=== PATIENT | female | born 2005 | race Caucasian/White ===

== ENCOUNTER 2024-04-04 10:29 | Inpatient (IN) ==
[2024-04-04] MEDS ORDERED: OXYTOCIN 30 UNITS/NSS 30 UNITS/500 ML BAG IV PRN (10:46)
[2024-04-04] MEDS ORDERED: LIDOCAINE 1% LOCAL 20 ML VIAL INFIL PRN (10:46)
--- NOTE | 2024-04-04 10:49 | History & Physical Report ---
Date of Service April 04, 2024 Assessment & Plan (1) Encounter for induction of labor: (2) Post-dates : Plan admit, fetus category one. Plan pitocin induction. arom when indicated. epidural on demand. anticipate . 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 uncomplicated. Notes good fm, rare contractions, no lof, vb and Delivery Plans Obesity (BMI between 35-39 @ beginning of ) *Growth US @ 32 wks *Weekly NSTs @ 36wks declines flu vaccine, covid unvaccinated. Patient Covid positive end of jul--8 weeks start baby asa MH crisis *see note from 38wk visit OB Labs: Blood Type O Positive 09/18/23 Antibody Screen NEGATIVE 09/18/23 Hemoglobin 11.2 g/dl (12.0-16.0) L 01/05/24 Hematocrit 34.1 % (37.0-47.0) L 01/05/24 Mean Corpuscular Volume 85.9 fL (80.0-100.0) 09/18/23 Platelet Count 270 K/uL (130-400) 09/18/23 Rubella IgG Antibody Immune (Immune) 09/18/23 Rapid Plasma Reagin Nonreactive (Nonreactive) 09/18/23 Hepatitis B Surface Antigen. NON-REACTIVE (NON-REACTIVE) 09/18/23 Hepatitis C Antibody (EIA) NON-REACTIVE (NON-REACTIVE) 09/18/23 HIV (1&2) Ag and Ab Confirmation NON-REACTIVE (NON-REACTIVE) 09/18/23 Glucose 1 Hour 50 gm Load 98 mg/dl (70-130) 01/05/24 Maternal Serum Alpha Fetoprotein 38.0 ng/mL 10/16/23 OB Optional Labs: Chlamydia trachomatis RNA Not Detected (NotDetected) 09/18/23 Neisseria gonorrhoeae RNA Not Detected (NotDetected) 09/18/23 Alpha Fetoprotein Triple Screen SEE NOTE 10/16/23 Labs Reviewed: low risk cfdna - sln neg horizon - sln afp neg--akh gbs neg--akh Allergies Allergy/AdvReac Type Severity Reaction Status Date / Time Penicillins Allergy Hives Verified 04/03/24 19:54 Home Medications Medication Instructions Recorded Confirmed Type vit 168-iron 27 mg-folic cap PO 09/10/23 04/01/24 History acid 800 mcg-omega3 235 mg capsule (One-A-Day -1) ondansetron HCl 4 mg tablet 4 mg PO Q6H PRN nausea and 02/02/24 04/03/24 Rx vomiting #20 tabs Patient History Medical History Abdominal contusion Chest wall contusion Ecchymosis Family History Brother Autism Aunt Breast cancer Social History Smoking Status: Never smoker Second Hand Exposure: No; Do You Dip or Chew Tobacco: No; Hx Alcohol Use: No Hx Substance Use: No Preferred Language: [place] Citizen Communication Ability: Effective Biomed Tech Required: No Beliefs That Will Affect Care: None marital status: Single marital status details: Luciano (22) [phone] Current Living Situation: Significant Other Current Living Situation Comment: lives with fob, roomate current occupational status: employed current occupation: [employer] Feels Safe at Home: Yes Assistive Devices: Glasses Physical Exam Constitutional: WD/WN, vitals as above Gastrointestinal (Abdomen): soft, nt, nd Psychiatric: A+Ox3, euthymic affect Genitourinary: cx--3/75/-2 toco--jordy efm--140s with mod variability, accels to 160s, no decels Coding Level of Care Code None Diagnoses Encounter for induction of labor Z34.90 Post-term , 40-42 weeks of gestation O48.0 Post-term type: 40-42 weeks gestation (2) Post-dates Post-term type: 40-42 weeks gestation Qualified Code(s): O48.0 - Post-term
[2024-04-04 11:26] LABS: Hematocrit (blood only) 34.5 % (37.0-47.0); Hemoglobin 11.4 g/dl (12.0-16.0); Mean Corpuscular Hemoglobin 27.9 pg (25.0-34.0); Mean Corpuscular Volume 84.6 fL (80.0-100.0); Mean Platelet Volume 10.6 fL (9.4-12.4); Platelet Count 206 K/uL (130-400); RDW Coefficient of Variation 13.3 % (11.5-14.5); Red Blood Count 4.08 M/uL (4.20-5.40); White Blood Count 10.37 K/ul (4.8-10.8)
[2024-04-04] MEDS: LACTATED RINGER'S 1,000 ML IV PRN (11:38)
[2024-04-04 11:54] LABS: Alanine Aminotransferase 10 U/L (7-52); Albumin Globulin Ratio 1.1 (0.9-2); Albumin Level 3.4 gm/dl (3.4-5.0); Alkaline Phosphatase 143 U/L (34-104); Anion Gap 9 (3-11); Aspartate Aminotransferase 13 U/L (13-39); BUN Creatinine Ratio 13.6 (10-20); Bilirubin,Total 0.3 mg/dl (0.2-1.0); Blood Urea Nitrogen 6 mg/dl (6-23); Calcium 8.9 mg/dl (8.6-10.3); Carbon Dioxide 20 mmol/L (21-32); Chloride 107 mmol/L (98-107); Creatinine Clr Calc Pharmacy 246.2 ml/min; Est GFR (African American) > 150.0 ml/min; Est GFR (Non-African American) 145.3 ml/min; Glucose 88 mg/dl (70-99(Fasting)); Potassium 3.7 mmol/L (3.5-5.1); Sodium 136 mmol/L (136-145); Total Protein 6.4 gm/dl (6.0-8.3)
[2024-04-04] MEDS: OXYTOCIN 30 UNITS/NSS 30 UNITS/500 ML BAG IV PRN (12:06)
[2024-04-04] MEDS: ONDANSETRON INJ 2 MG/ML 2 ML VIAL IV STA (19:24)
--- NOTE | 2024-04-04 19:24 | Labor Progress Brief Note ---
Date of Service April 04, 2024 Subjective noting contractions, some nausea Assessment & Plan (1) Post-dates : Post-term type: 40-42 weeks gestation Qualified Code(s): O48.0 - Post-term (2) Encounter for induction of labor: Plan continue current therapy. fetus category one Admission and Anticipated Discharge Date Admission Date: April 04, 2024 Physical Exam Physical Exam: cx--3/75/-2 arom--clear toco--q2-3 efm--149s wtih mod variability, accels to 160s, no decels Results & Data Vital Signs (Past 12 Hours) Vital Signs Temp Pulse Resp BP 04/04/24 19:06 85 04/04/24 19:06 149/82 H 04/04/24 19:00 18 04/04/24 19:00 18 04/04/24 18:00 18 04/04/24 18:00 18 04/04/24 17:30 18 04/04/24 17:30 18 04/04/24 17:00 18 04/04/24 17:00 18 04/04/24 16:34 71 04/04/24 16:34 133/84 04/04/24 16:30 20 04/04/24 16:30 36.8 C 20 04/04/24 16:00 18 04/04/24 16:00 18 04/04/24 15:48 69 04/04/24 15:48 131/81 04/04/24 15:30 20 04/04/24 15:30 20 04/04/24 15:00 20 04/04/24 15:00 36.9 C 20 04/04/24 14:42 82 04/04/24 14:42 120/74 04/04/24 14:00 16 04/04/24 14:00 16 04/04/24 13:56 81 04/04/24 13:56 115/70 04/04/24 13:40 20 04/04/24 13:40 20 04/04/24 12:45 79 04/04/24 12:45 126/75 04/04/24 12:30 16 04/04/24 12:30 16 04/04/24 12:00 20 04/04/24 12:00 20 04/04/24 11:59 75 04/04/24 11:59 130/84 05/06/24 11:45 18 04/04/24 11:45 18 04/04/24 11:41 83 04/04/24 11:41 135/71 04/04/24 11:39 83 04/04/24 11:39 180/87 H 04/04/24 11:15 36.8 C 20 04/04/24 10:51 94 H 142/87 H Coding Level of Care Code None Diagnoses Post-term , 40-42 weeks of gestation O48.0 Post-term type: 40-42 weeks gestation Encounter for induction of labor Z34.90
[2024-04-04] MEDS ORDERED: NALBUPHINE HCL 5 MG in SYRINGE 0 ML IV PRN (21:40)
[2024-04-04] MEDS ORDERED: SODIUM CHLORIDE 0.9% PF INJ 10 ML VIAL EPI PRN (21:40)
[2024-04-04] MEDS ORDERED: fentaNYL citrate PF 100 MCG/2 ML VIAL EPI PRN (21:40)
[2024-04-04] MEDS ORDERED: NALOXONE HCL 1 MG in SODIUM CHLORIDE 0.9% 1,000 ML IV PRN (21:40)
[2024-04-04] MEDS ORDERED: ePHEDrine sulfate 50 MG/ML AMP IV PRN (21:40)
[2024-04-04] MEDS ORDERED: BUPIVACAINE 0.25% PF 30 ML VIAL EPI PRN (21:40)
[2024-04-04] MEDS ORDERED: diphenhydrAMINE 50 MG/ML VIAL IV PRN (21:40)
[2024-04-04] MEDS ORDERED: LIDOCAINE 2% MPF LOCAL 5 ML VIAL EPI PRN (21:40)
[2024-04-04] MEDS ORDERED: ROPIVACAINE 0.5% PF 5 MG/ML 20 ML VIAL EPI PRN (21:40)
[2024-04-04] MEDS ORDERED: NALOXONE HCL 0.4 MG/1 ML VIAL/CARP IV PRN (21:40)
--- NOTE | 2024-04-04 21:44 | Anesthesiology Consultation ---
Date of Service April 04, 2024 Assessment & Plan Chart Review Chart Review: Patient NOT seen in Pre Admission Testing and Acceptable Risk for Labor Epidural Consults Requested none History Height/Weight Height: 5 ft 5 in Weight: 105.687 kg Allergies Allergy/AdvReac Type Severity Reaction Status Date / Time Penicillins Allergy Hives Verified 04/03/24 19:54 Medications Home Medications Medication Instructions Recorded Confirmed Last Taken vit 168-iron 27 mg-folic 27 cap PO DAILY 09/10/23 04/04/24 04/04/24 acid 800 mcg-omega3 235 mg capsule (One-A-Day -1) ondansetron HCl 4 mg tablet 4 mg PO Q6H PRN nausea and 02/02/24 04/04/24 Unknown vomiting #20 tabs Active Medications Generic Name Dose Route Start Last Admin Trade Name Freq PRN Reason Stop Dose Admin Oxytocin 30 units in 500 mls @ 18 mls/hr 04/04/24 10:46 04/04/24 20:15 Pitocin 30 Units/Nss IV 04/06/24 10:45 1.08 units/hr .Q24H PRN 18 mls/hr Labor Induction/Augmentation Titration Protocol 1.08 UNITS/HR Lactated Ringer's 1,000 mls @ 125 mls/hr 04/04/24 10:46 04/04/24 21:40 Lr IV 04/06/24 10:45 Infused .Q8H PRN Infusion L&D Protocol Protocol Past Medical History Medical History Ecchymosis Abdominal contusion Chest wall contusion Exercise / Class Metabolic Activity II 4-5 Yardwork/Stairs/Walk up hill Past Family History Family History Brother Autism Aunt Breast cancer Past Surgical History Surgical History No history of previous surgery Past Anesthesia History No Hx of Anesthesia Complications and No Family Hx of Anesthesia Complications History of PONV No Hx of PONV and No Hx of Motion Sickness Social History Smoking Status: Never smoker Do You Dip or Chew Tobacco: No Hx Alcohol Use: No Hx Substance Use: No substance use type: does not use Physical Exam Vital Signs Last Vital Signs Temp 36.6 C 04/04/24 21:00 Pulse 64 04/04/24 20:58 Resp 18 04/04/24 21:00 BP 132/77 04/04/24 20:58 Testing Laboratory Results 04/04/24 11:03 04/04/24 11:07 Blood Type O Positive 04/04/24 11:03 Antibody Screen NEGATIVE 04/04/24 11:03
[2024-04-04] MEDS: BUPIVACAINE 0.25% PF 30 ML VIAL ONE (21:47)
[2024-04-04] MEDS: fentaNYL citrate PF 100 MCG/2 ML VIAL ONE (21:47)
[2024-04-04] MEDS: fentANYL 2 MCG/ML BUPIVacaine 0.125%-NSS 100ML BAG ONE (21:48)
[2024-04-04] MEDS: LIDOCAINE 2%/EPINEPHRINE 1:200,000 20 ML PF ONE (22:00)
--- NOTE | 2024-04-05 00:09 | Labor Progress Brief Note ---
Date of Service April 05, 2024 Subjective comfortable with epidural Assessment & Plan (1) Post-dates : Post-term type: 40-42 weeks gestation Qualified Code(s): O48.0 - Post-term (2) Encounter for induction of labor: Plan continue current management. fetus category one. Admission and Anticipated Discharge Date Admission Date: April 04, 2024 Physical Exam Physical Exam: cx--4+/100/-2 toco--q3-4min, pit at 18 efm--130s with mod variability, accels to 160s with mod variability, no decels Results & Data Vital Signs (Past 12 Hours) Vital Signs Temp Pulse Resp BP Pulse Ox 04/05/24 00:02 66 98 04/04/24 23:57 98 04/04/24 23:57 67 04/04/24 23:56 61 04/04/24 23:56 109/64 04/04/24 23:52 97 04/04/24 23:52 66 04/04/24 23:47 98 04/04/24 23:47 70 04/04/24 23:42 97 04/04/24 23:42 53 L 04/04/24 23:41 51 L 04/04/24 23:41 116/68 04/04/24 23:37 97 04/04/24 23:37 57 L 04/04/24 23:32 97 04/04/24 23:32 55 L 04/04/24 23:27 97 04/04/24 23:27 65 04/04/24 23:27 126/67 04/04/24 23:22 97 04/04/24 23:22 53 L 04/04/24 23:17 98 04/04/24 23:17 52 L 04/04/24 23:12 98 04/04/24 23:12 55 L 04/04/24 23:11 56 L 04/04/24 23:11 128/64 04/04/24 23:07 98 04/04/24 23:07 62 04/04/24 23:02 99 04/04/24 23:02 62 04/04/24 23:00 18 04/04/24 23:00 38.8 C H 18 04/04/24 22:57 97 04/04/24 22:57 70 04/04/24 22:57 77 04/04/24 22:57 119/57 L 04/04/24 22:52 97 04/04/24 22:52 72 04/04/24 22:47 97 04/04/24 22:47 68 04/04/24 22:43 68 04/04/24 22:43 118/61 04/04/24 22:42 97 04/04/24 22:42 65 04/04/24 22:37 98 04/04/24 22:37 72 04/04/24 22:32 98 04/04/24 22:32 57 L 04/04/24 22:30 18 04/04/24 22:30 18 04/04/24 22:27 99 04/04/24 22:27 64 04/04/24 22:26 66 04/04/24 22:26 128/62 04/04/24 22:24 77 04/04/24 22:24 162/67 H 04/04/24 22:22 99 04/04/24 22:22 60 04/04/24 22:20 18 04/04/24 22:20 18 04/04/24 22:19 71 04/04/24 22:19 124/75 04/04/24 22:17 98 04/04/24 22:17 73 04/04/24 22:12 99 04/04/24 22:12 72 04/04/24 22:12 127/70 04/04/24 22:11 68 04/04/24 22:11 121/56 L 04/04/24 22:10 18 04/04/24 22:10 18 04/04/24 22:09 77 04/04/24 22:09 126/62 04/04/24 22:08 85 04/04/24 22:08 131/67 04/04/24 22:07 99 04/04/24 22:07 80 04/04/24 22:07 122/61 04/04/24 22:06 76 04/04/24 22:06 121/59 L 04/04/24 22:05 66 04/04/24 22:05 119/58 L 04/04/24 22:04 77 04/04/24 22:04 126/64 04/04/24 22:03 72 04/04/24 22:03 123/57 L 04/04/24 22:02 99 04/04/24 22:02 72 04/04/24 22:02 123/61 04/04/24 22:01 68 04/04/24 22:01 130/65 04/04/24 22:00 84 04/04/24 22:00 141/65 H 04/04/24 21:59 78 04/04/24 21:59 133/81 04/04/24 21:58 87 04/04/24 21:58 144/81 H 04/04/24 21:57 100 04/04/24 21:57 84 04/04/24 21:57 75 04/04/24 21:57 134/87 04/04/24 21:56 93 H 04/04/24 21:56 154/74 H 04/04/24 21:52 100 04/04/24 21:52 95 H 04/04/24 21:47 100 04/04/24 21:47 90 04/04/24 21:47 147/73 H 04/04/24 21:42 100 04/04/24 21:42 78 04/04/24 21:00 18 04/04/24 21:00 36.6 C 18 04/04/24 20:58 64 04/04/24 20:58 132/77 04/04/24 19:06 85 04/04/24 19:06 149/82 H 04/04/24 19:05 36.7 C 18 04/04/24 19:05 18 04/04/24 19:05 36.7 C 18 04/04/24 19:00 18 04/04/24 19:00 18 04/04/24 18:00 18 04/04/24 18:00 18 04/04/24 17:30 18 04/04/24 17:30 18 04/04/24 17:00 18 04/04/24 17:00 18 04/04/24 16:34 71 04/04/24 16:34 133/84 04/04/24 16:30 20 04/04/24 16:30 36.8 C 20 04/04/24 16:00 18 04/04/24 16:00 18 04/04/24 15:48 69 04/04/24 15:48 131/81 04/04/24 15:30 20 04/04/24 15:30 20 04/04/24 15:00 20 04/04/24 15:00 36.9 C 20 04/04/24 14:42 82 04/04/24 14:42 120/74 04/04/24 14:00 16 04/04/24 14:00 16 04/04/24 13:56 81 04/04/24 13:56 115/70 04/04/24 13:40 20 04/04/24 13:40 20 04/04/24 12:45 79 04/04/24 12:45 126/75 04/04/24 12:30 16 04/04/24 12:30 16 Coding Level of Care Code None Diagnoses Post-term , 40-42 weeks of gestation O48.0 Post-term type: 40-42 weeks gestation Encounter for induction of labor Z34.90
[2024-04-05] MEDS: SODIUM CHLORIDE 0.9% PF INJ 10 ML VIAL ONE (00:21)
[2024-04-05] MEDS: BUPIVACAINE 0.25% PF 30 ML VIAL EPI STA (00:21)
[2024-04-05] MEDS: LIDOCAINE 2%/EPINEPHRINE 1:200,000 20 ML PF EPI STA (00:21)
[2024-04-05] MEDS: SODIUM CHLORIDE 0.9% PF INJ 10 ML VIAL EPI STA (00:21)
[2024-04-05] MEDS: ePHEDrine sulfate 50 MG/ML AMP ONE (00:21)
[2024-04-05] MEDS: fentaNYL citrate PF 100 MCG/2 ML VIAL EPI STA (00:21)
--- NOTE | 2024-04-05 05:08 | Labor Progress Brief Note ---
Date of Service April 05, 2024 Subjective comfortable Assessment & Plan (1) Post-dates : Post-term type: 40-42 weeks gestation Qualified Code(s): O48.0 - Post-term (2) Encounter for induction of labor: Plan slow change, hopefully on cusp of being active. fetus category one. iupc placed, pit can be increased to 30 if needed. Admission and Anticipated Discharge Date Admission Date: April 04, 2024 Physical Exam Physical Exam: cx--5/100/-2 iupc placed toco--q2-4 min, pit at 20 efm--140s with mod variability, accels present, rare variable Results & Data Vital Signs (Past 12 Hours) Vital Signs Temp Pulse Resp BP Pulse Ox 04/05/24 05:02 93 H 100 04/05/24 04:57 60 136/82 99 04/05/24 04:52 58 L 97 04/05/24 04:47 53 L 97 04/05/24 04:42 98 04/05/24 04:42 69 04/05/24 04:42 83 131/70 04/05/24 04:41 18 04/05/24 04:41 36.3 C L 18 04/05/24 04:37 62 98 04/05/24 04:32 60 99 04/05/24 04:28 69 101/65 04/05/24 04:27 66 96 04/05/24 04:22 67 95 04/05/24 04:17 82 96 04/05/24 04:12 59 L 106/59 L 96 04/05/24 04:07 71 96 04/05/24 04:02 66 96 04/05/24 03:58 50 L 106/55 L 04/05/24 03:57 67 95 04/05/24 03:52 66 95 04/05/24 03:47 65 96 04/05/24 03:42 53 L 110/54 L 96 04/05/24 03:37 70 96 04/05/24 03:32 68 96 04/05/24 03:27 97 04/05/24 03:27 68 04/05/24 03:27 70 111/57 L 04/05/24 03:22 70 96 04/05/24 03:17 67 97 04/05/24 03:12 56 L 113/65 98 04/05/24 03:07 65 97 04/05/24 03:02 74 99 04/05/24 03:00 18 04/05/24 03:00 36.7 C 18 04/05/24 02:57 92 04/05/24 02:57 76 04/05/24 02:57 74 130/75 04/05/24 02:52 62 98 04/05/24 02:47 55 L 96 04/05/24 02:42 53 L 121/65 96 04/05/24 02:37 59 L 96 04/05/24 02:32 55 L 97 04/05/24 02:27 51 L 97 04/05/24 02:26 48 L 123/57 L 04/05/24 02:22 52 L 96 04/05/24 02:17 53 L 97 04/05/24 02:12 97 04/05/24 02:12 56 L 04/05/24 02:12 51 L 123/62 04/05/24 02:07 53 L 97 04/05/24 02:02 52 L 97 04/05/24 01:57 55 L 144/76 H 99 04/05/24 01:52 51 L 98 04/05/24 01:47 52 L 97 04/05/24 01:42 53 L 97 04/05/24 01:41 47 L 122/67 04/05/24 01:37 58 L 96 04/05/24 01:32 53 L 97 04/05/24 01:27 58 L 97 04/05/24 01:26 48 L 124/65 04/05/24 01:22 54 L 97 04/05/24 01:17 69 97 04/05/24 01:12 72 98 04/05/24 01:11 62 130/69 04/05/24 01:07 66 98 04/05/24 01:02 66 99 04/05/24 01:00 18 04/05/24 01:00 36.7 C 18 04/05/24 00:57 74 140/71 98 04/05/24 00:52 56 L 98 04/05/24 00:47 73 97 04/05/24 00:42 70 97 04/05/24 00:41 68 120/64 04/05/24 00:37 66 98 04/05/24 00:32 72 97 04/05/24 00:27 64 97 04/05/24 00:26 66 117/61 04/05/24 00:22 64 97 04/05/24 00:17 61 97 04/05/24 00:13 64 124/58 L 04/05/24 00:12 61 98 04/05/24 00:07 79 98 04/05/24 00:02 66 98 04/04/24 23:57 98 04/04/24 23:57 67 04/04/24 23:56 61 04/04/24 23:56 109/64 04/04/24 23:52 97 04/04/24 23:52 66 04/04/24 23:47 98 04/04/24 23:47 70 04/04/24 23:42 97 04/04/24 23:42 53 L 04/04/24 23:41 51 L 04/04/24 23:41 116/68 04/04/24 23:37 97 04/04/24 23:37 57 L 04/04/24 23:32 97 04/04/24 23:32 55 L 04/04/24 23:27 97 04/04/24 23:27 65 04/04/24 23:27 126/67 04/04/24 23:22 97 04/04/24 23:22 53 L 04/04/24 23:17 98 04/04/24 23:17 52 L 04/04/24 23:12 98 04/04/24 23:12 55 L 04/04/24 23:11 56 L 04/04/24 23:11 128/64 04/04/24 23:07 98 04/04/24 23:07 62 04/04/24 23:02 99 04/04/24 23:02 62 04/04/24 23:00 18 04/04/24 23:00 38.8 C H 18 04/04/24 22:57 97 04/04/24 22:57 70 04/04/24 22:57 77 04/04/24 22:57 119/57 L 04/04/24 22:52 97 04/04/24 22:52 72 04/04/24 22:47 97 04/04/24 22:47 68 04/04/24 22:43 68 04/04/24 22:43 118/61 04/04/24 22:42 97 04/04/24 22:42 65 04/04/24 22:37 98 04/04/24 22:37 72 04/04/24 22:32 98 04/04/24 22:32 57 L 04/04/24 22:30 18 04/04/24 22:30 18 04/04/24 22:27 99 04/04/24 22:27 64 04/04/24 22:26 66 04/04/24 22:26 128/62 04/04/24 22:24 77 04/04/24 22:24 162/67 H 04/04/24 22:22 99 04/04/24 22:22 60 04/04/24 22:20 18 04/04/24 22:20 18 04/04/24 22:19 71 04/04/24 22:19 124/75 04/04/24 22:17 98 04/04/24 22:17 73 04/04/24 22:12 99 04/04/24 22:12 72 04/04/24 22:12 127/70 04/04/24 22:11 68 04/04/24 22:11 121/56 L 04/04/24 22:10 18 04/04/24 22:10 18 04/04/24 22:09 77 04/04/24 22:09 126/62 04/04/24 22:08 85 04/04/24 22:08 131/67 04/04/24 22:07 99 04/04/24 22:07 80 04/04/24 22:07 122/61 04/04/24 22:06 76 04/04/24 22:06 121/59 L 04/04/24 22:05 66 04/04/24 22:05 119/58 L 04/04/24 22:04 77 04/04/24 22:04 126/64 04/04/24 22:03 72 04/04/24 22:03 123/57 L 04/04/24 22:02 99 04/04/24 22:02 72 04/04/24 22:02 123/61 04/04/24 22:01 68 04/04/24 22:01 130/65 04/04/24 22:00 84 04/04/24 22:00 141/65 H 04/04/24 21:59 78 04/04/24 21:59 133/81 04/04/24 21:58 87 04/04/24 21:58 144/81 H 04/04/24 21:57 100 04/04/24 21:57 84 04/04/24 21:57 75 04/04/24 21:57 134/87 04/04/24 21:56 93 H 04/04/24 21:56 154/74 H 04/04/24 21:52 100 04/04/24 21:52 95 H 04/04/24 21:47 100 04/04/24 21:47 90 04/04/24 21:47 147/73 H 04/04/24 21:42 100 04/04/24 21:42 78 04/04/24 21:00 18 04/04/24 21:00 36.6 C 18 04/04/24 20:58 64 04/04/24 20:58 132/77 04/04/24 19:06 85 04/04/24 19:06 149/82 H 04/04/24 19:05 36.7 C 18 04/04/24 19:05 18 04/04/24 19:05 36.7 C 18 04/04/24 19:00 18 04/04/24 19:00 18 04/04/24 18:00 18 04/04/24 18:00 18 04/04/24 17:30 18 04/04/24 17:30 18 Coding Level of Care Code None Diagnoses Post-term , 40-42 weeks of gestation O48.0 Post-term type: 40-42 weeks gestation Encounter for induction of labor Z34.90
[2024-04-05] MEDS: fentANYL 2 MCG/ML BUPIVacaine 0.125%-NSS 100ML BAG EPI PRN (06:30)
--- NOTE | 2024-04-05 09:03 | Labor Progress Brief Note ---
Date of Service April 05, 2024 Subjective Crampy and uncomfortable - epidural in place, was working well but recently has been feeling more discomfort. Assessment & Plan (1) Post-dates : Plan: Continue IOL, making adequate progress at this time. Post-term type: 40-42 weeks gestation Qualified Code(s): O48.0 - Post-term (2) Encounter for induction of labor: (3) Obesity affecting : Admission and Anticipated Discharge Date Admission Date: April 04, 2024 Physical Exam Genitourinary: MVU 200+ since 0500 when IUPC was placed. Ctx Q2 Cvx /-1 FHT Cat 1 Results & Data Vital Signs (Past 12 Hours) Vital Signs Temp Pulse Resp BP Pulse Ox 04/05/24 08:57 65 125/69 98 04/05/24 08:52 77 100 04/05/24 08:47 76 98 04/05/24 08:42 67 99 04/05/24 08:41 70 140/72 04/05/24 08:37 79 98 04/05/24 08:32 74 99 04/05/24 08:29 70 135/65 04/05/24 08:27 76 100 04/05/24 08:22 73 96 04/05/24 08:17 68 99 04/05/24 08:12 67 133/80 98 04/05/24 08:07 66 98 04/05/24 08:02 74 98 04/05/24 07:59 51 L 114/61 04/05/24 07:57 60 98 04/05/24 07:52 70 98 04/05/24 07:47 88 99 04/05/24 07:42 59 L 96 04/05/24 07:41 75 111/58 L 04/05/24 07:37 68 98 04/05/24 07:32 67 96 04/05/24 07:27 80 114/65 97 04/05/24 07:25 97.9 F 04/05/24 07:22 58 L 97 04/05/24 07:17 59 L 97 04/05/24 07:12 57 L 97 04/05/24 07:11 72 117/69 04/05/24 07:07 67 97 04/05/24 07:02 68 97 04/05/24 06:58 68 116/73 04/05/24 06:57 63 98 04/05/24 06:52 70 97 04/05/24 06:47 71 98 04/05/24 06:44 67 121/66 04/05/24 06:42 56 L 98 04/05/24 06:37 66 97 04/05/24 06:32 69 98 04/05/24 06:27 68 98 04/05/24 06:26 71 126/68 04/05/24 06:22 80 100 04/05/24 06:17 64 99 04/05/24 06:12 99 04/05/24 06:12 59 L 04/05/24 06:12 64 134/82 04/05/24 06:07 56 L 98 04/05/24 06:02 72 99 04/05/24 05:58 76 158/76 H 04/05/24 05:57 73 99 04/05/24 05:52 57 L 99 04/05/24 05:47 53 L 98 04/05/24 05:42 54 L 98 04/05/24 05:41 64 132/74 04/05/24 05:37 61 99 04/05/24 05:32 63 98 04/05/24 05:28 70 141/77 H 04/05/24 05:27 71 100 04/05/24 05:22 63 100 04/05/24 05:17 66 98 04/05/24 05:12 67 129/70 98 04/05/24 05:07 73 99 04/05/24 05:02 93 H 100 04/05/24 04:57 60 136/82 99 04/05/24 04:52 58 L 97 04/05/24 04:47 53 L 97 04/05/24 04:42 98 04/05/24 04:42 69 04/05/24 04:42 83 131/70 04/05/24 04:41 18 04/05/24 04:41 97.3 F L 18 04/05/24 04:37 62 98 04/05/24 04:32 60 99 04/05/24 04:28 69 101/65 04/05/24 04:27 66 96 04/05/24 04:22 67 95 04/05/24 04:17 82 96 04/05/24 04:12 59 L 106/59 L 96 04/05/24 04:07 71 96 05/07/24 04:02 66 96 04/05/24 03:58 50 L 106/55 L 04/05/24 03:57 67 95 04/05/24 03:52 66 95 04/05/24 03:47 65 96 04/05/24 03:42 53 L 110/54 L 96 04/05/24 03:37 70 96 04/05/24 03:32 68 96 04/05/24 03:27 97 04/05/24 03:27 68 04/05/24 03:27 70 111/57 L 04/05/24 03:22 70 96 04/05/24 03:17 67 97 04/05/24 03:12 56 L 113/65 98 04/05/24 03:07 65 97 04/05/24 03:02 74 99 04/05/24 03:00 18 04/05/24 03:00 98.1 F 18 04/05/24 02:57 92 04/05/24 02:57 76 04/05/24 02:57 74 130/75 04/05/24 02:52 62 98 04/05/24 02:47 55 L 96 04/05/24 02:42 53 L 121/65 96 04/05/24 02:37 59 L 96 04/05/24 02:32 55 L 97 04/05/24 02:27 51 L 97 04/05/24 02:26 48 L 123/57 L 04/05/24 02:22 52 L 96 04/05/24 02:17 53 L 97 04/05/24 02:12 97 04/05/24 02:12 56 L 04/05/24 02:12 51 L 123/62 04/05/24 02:07 53 L 97 04/05/24 02:02 52 L 97 04/05/24 01:57 55 L 144/76 H 99 04/05/24 01:52 51 L 98 04/05/24 01:47 52 L 97 04/05/24 01:42 53 L 97 04/05/24 01:41 47 L 122/67 04/05/24 01:37 58 L 96 04/05/24 01:32 53 L 97 04/05/24 01:27 58 L 97 04/05/24 01:26 48 L 124/65 04/05/24 01:22 54 L 97 04/05/24 01:17 69 97 04/05/24 01:12 72 98 04/05/24 01:11 62 130/69 04/05/24 01:07 66 98 04/05/24 01:02 66 99 04/05/24 01:00 18 04/05/24 01:00 98.1 F 18 04/05/24 00:57 74 140/71 98 04/05/24 00:52 56 L 98 04/05/24 00:47 73 97 04/05/24 00:42 70 97 04/05/24 00:41 68 120/64 04/05/24 00:37 66 98 04/05/24 00:32 72 97 04/05/24 00:27 64 97 04/05/24 00:26 66 117/61 04/05/24 00:22 64 97 04/05/24 00:17 61 97 04/05/24 00:13 64 124/58 L 04/05/24 00:12 61 98 04/05/24 00:07 79 98 04/05/24 00:02 66 98 04/04/24 23:57 98 04/04/24 23:57 67 04/04/24 23:56 61 04/04/24 23:56 109/64 04/04/24 23:52 97 04/04/24 23:52 66 04/04/24 23:47 98 04/04/24 23:47 70 04/04/24 23:42 97 04/04/24 23:42 53 L 04/04/24 23:41 51 L 04/04/24 23:41 116/68 04/04/24 23:37 97 04/04/24 23:37 57 L 04/04/24 23:32 97 04/04/24 23:32 55 L 04/04/24 23:27 97 04/04/24 23:27 65 04/04/24 23:27 126/67 04/04/24 23:22 97 04/04/24 23:22 53 L 04/04/24 23:17 98 04/04/24 23:17 52 L 04/04/24 23:12 98 04/04/24 23:12 55 L 04/04/24 23:11 56 L 04/04/24 23:11 128/64 05 23:07 98 04/04/24 23:07 62 04/04/24 23:02 99 04/04/24 23:02 62 04/04/24 23:00 18 04/04/24 23:00 101.8 F H 18 04/04/24 22:57 97 04/04/24 22:57 70 04/04/24 22:57 77 04/04/24 22:57 119/57 L 04/04/24 22:52 97 04/04/24 22:52 72 04/04/24 22:47 97 04/04/24 22:47 68 04/04/24 22:43 68 04/04/24 22:43 118/61 04/04/24 22:42 97 04/04/24 22:42 65 04/04/24 22:37 98 04/04/24 22:37 72 04/04/24 22:32 98 04/04/24 22:32 57 L 04/04/24 22:30 18 04/04/24 22:30 18 04/04/24 22:27 99 04/04/24 22:27 64 04/04/24 22:26 66 04/04/24 22:26 128/62 04/04/24 22:24 77 04/04/24 22:24 162/67 H 04/04/24 22:22 99 04/04/24 22:22 60 04/04/24 22:20 18 04/04/24 22:20 18 04/04/24 22:19 71 04/04/24 22:19 124/75 04/04/24 22:17 98 04/04/24 22:17 73 04/04/24 22:12 99 04/04/24 22:12 72 04/04/24 22:12 127/70 04/04/24 22:11 68 04/04/24 22:11 121/56 L 04/04/24 22:10 18 04/04/24 22:10 18 04/04/24 22:09 77 04/04/24 22:09 126/62 04/04/24 22:08 85 04/04/24 22:08 131/67 04/04/24 22:07 99 04/04/24 22:07 80 04/04/24 22:07 122/61 04/04/24 22:06 76 04/04/24 22:06 121/59 L 04/04/24 22:05 66 04/04/24 22:05 119/58 L 04/04/24 22:04 77 04/04/24 22:04 126/64 04/04/24 22:03 72 04/04/24 22:03 123/57 L 04/04/24 22:02 99 04/04/24 22:02 72 04/04/24 22:02 123/61 04/04/24 22:01 68 04/04/24 22:01 130/65 04/04/24 22:00 84 04/04/24 22:00 141/65 H 04/04/24 21:59 78 04/04/24 21:59 133/81 04/04/24 21:58 87 04/04/24 21:58 144/81 H 04/04/24 21:57 100 04/04/24 21:57 84 04/04/24 21:57 75 04/04/24 21:57 134/87 04/04/24 21:56 93 H 04/04/24 21:56 154/74 H 04/04/24 21:52 100 04/04/24 21:52 95 H 04/04/24 21:47 100 04/04/24 21:47 90 04/04/24 21:47 147/73 H 04/04/24 21:42 100 04/04/24 21:42 78 Coding Level of Care Code None Diagnoses Post-term , 40-42 weeks of gestation O48.0 Post-term type: 40-42 weeks gestation Encounter for induction of labor Z34.90 Obesity affecting O99.210
[2024-04-05] MEDS: ONDANSETRON INJ 2 MG/ML 2 ML VIAL IV PRN (10:28)
--- NOTE | 2024-04-05 15:39 | Delivery Summary ---
Vaginal Delivery Summary Date of Service April 05, 2024 Vaginal Delivery Summary DIAGNOSES: 1. Felix intrauterine at 41w0d gestation. 2. Induction of Labor. 3. Group B Streptococcus Neg. PROCEDURE: Spontaneous vaginal delivery and repair of second degree and L sulcal laceration. SURGEON: Fernanda Wheatley MD. POOL PLAYER: None. ESTIMATED BLOOD LOSS: 250 mL. COMPLICATIONS: None. PLACENTA: Spontaneous and intact with a 3-vessel cord. DISPOSITION: Stable to labor and delivery. DESCRIPTION: The patient pushed well and brought the head to in DOA position. The infant's head was allowed to deliver with contraction force and no further active pushing, with the perineum protected during this time. There was a triple nuchal cord. The right shoulder was anterior. The shoulders and body delivered without any difficulty, and the was placed on the maternal abdomen. It was vigorous and moving all extremities, and making respiratory efforts. The cord was doubly clamped by the MD and then cut by the FOB. The placenta delivered spontaneously and was noted to be intact and with a 3VC. The cervix, vagina and perineum were examined and were found to have a long L sulcal laceration reaching all the way to the lateral fornix and extending into the L labium, and a second degree perineal laceration. The sulcal lac was repaired first, beginning at the apex and in a running locked manner, finishing in the labia. The perineal laceration was repaired in the typical manner running locked, then crown stitches to the perineal body, then subcuticular closure of the skin. The fundus was firm and lochia minimal immediately after delivery. [facility] Vaginal Delivery Charge Vaginal Delivery Codes: 15528 global code for the antepartum, delivery, and post-
[2024-04-05] MEDS ORDERED: OXYTOCIN 30 UNITS/NSS 30 UNITS/500 ML BAG IV PRN (16:16)
[2024-04-05] MEDS ORDERED: ACETAMINOPHEN 325 MG TAB PO PRN (16:16)
[2024-04-05] MEDS ORDERED: HYDROCORTISONE ACETATE 25 MG SUPP PR PRN (16:16)
[2024-04-05] MEDS ORDERED: oxyCODONE/ACETAMINOPHEN 5mg/325mg TAB PO PRN (16:16)
[2024-04-05] MEDS ORDERED: bisacodyL 10 MG SUPP PR PRN (16:16)
--- NOTE | 2024-04-05 17:00 | Anesthesia Procedure Note ---
Date of Service April 05, 2024 Anesthesia Post Epidural Note Vital Signs Vital Signs: Temp Pulse Resp BP Pulse Ox O2 Del Method 36.5 C 93 H 18 132/70 94 Room Air 04/05/24 15:45 04/05/24 16:57 04/05/24 16:30 04/05/24 16:56 04/05/24 16:57 04/05/24 16:15 Pain Intensity Left Back: Pain Intensity: 7 Notes Mental Status: alert / awake / arousable and participated in evaluation Nausea / Vomiting: adequately controlled Pain: adequately controlled Airway Patency, RR, SpO2: stable & adequate BP & HR: stable & adequate Hydration State: stable & adequate
[2024-04-05] MEDS: DIPHTHER/TETAN/PERTUS Vaccine (Tdap, Adol/Adult) 0.5mL IM ONE (18:22)
[2024-04-05] MEDS: BENZOCAINE 20% SPRY 85 APPLN/85 GM CAN EXT PRN (18:23)
[2024-04-05] MEDS: DOCUSATE SODIUM 100 MG CAP PO SCH (21:24)
[2024-04-05] MEDS: IBUPROFEN 600 MG TAB PO PRN (21:24)
--- NOTE | 2024-04-06 05:49 | Obstetrical Progress Note ---
Date of Service <Lauradarell Cerrato DO - Last Filed: 04/06/24 05:50> April 06, 2024 Assessment & Plan <Laura Sarah Cerrato DO - Last Filed: 04/06/24 05:50> (1) care following vaginal delivery: Feels well today. Eating well, voiding well, ambulating well. Pain well controlled with motrin. Routine care; OOB, ambulation, continue regular diet. Anticipate discharge 24-48 hours after . As this is first baby, likely tomorrow. After discharge will have 6 week follow-up with Dr. Wheatley. <Fernanda Wheatley MD - Last Filed: 04/06/24 07:21> (1) care following vaginal delivery: Subjective <Lauradarell Cerrato DO - Last Filed: 04/06/24 05:50> Pt is a 18 y/o female who is PPD#1 following . Today, pt states she is overall feeling pretty good. Tolerating diet and has been able to ambulate a bit since the delivery. She is bottle feeding and states that has been going okay. Cramps are mild and improving, as is lochia. No questions or complaints at this point in time. Constitutional: no fever, no chills or no sweats Respiratory: no dyspnea Cardiovascular: no chest pain or no palpitations Breast: no breast pain Genitourinary (female): no dysuria Neurologic: no headache(s) no changes in vision, no headaches Physical Exam <Lauradarell Cerrato DO - Last Filed: 04/06/24 05:50> General: Alert, oriented. No acute distress. Cardiac: Regular rate and rhythm, no murmurs, rubs, or gallops. Respiratory: Clear to auscultation bilaterally, no wheezes/rales/rhonchi. No increased work of breathing. Symmetrical chest rise. No respiratory distress. Abdomen: Soft, nontender, nondistended. Bowel sounds present. Uterus: Uterine fundus firm, palpable below the umbilicus. Lower extremities: No lower extremity edema or swelling. No deep calf pain. Results & Data <Laura Cerrato DO - Last Filed: 04/06/24 05:50> Vital Signs (Past 12 Hours) Vital Signs Temp Pulse Resp BP Pulse Ox O2 Del Method 04/06/24 04:15 36.5 C 90 18 108/73 98 Room Air 04/05/24 23:45 36.5 C 91 H 18 105/68 98 Room Air 04/05/24 21:30 36.3 C L 107 H 20 140/84 98 Room Air 04/05/24 18:20 36.4 C L 114 H 18 132/85 96 Room Air Supervising Physician <Fernanda Wheatley MD - Last Filed: 04/06/24 07:21> Co-Signing Physician Notes Resident Physician Supervision Note: I interviewed and examined the patient. Agree with findings and plan as documented in the note by Dr. Cerrato. Any exceptions or clarifications are listed here: [ ] Documented By: Fernanda Wheatley MD, FACOG Resident Activity Tracking <Laura Cerrato DO - Last Filed: 04/06/24 05:50> Resident Involvement: Resident Care Provided Care Provided: OB Delivery
[2024-04-06 06:46] LABS: Hematocrit (blood only) 25.2 % (37.0-47.0); Hemoglobin 8.3 g/dl (12.0-16.0); Mean Corpuscular Hemoglobin 28.3 pg (25.0-34.0); Mean Corpuscular Hgb Conc 32.9 g/dL (32.0-36.0); Mean Platelet Volume 10.6 fL (9.4-12.4); Platelet Count 176 K/uL (130-400); RDW Coefficient of Variation 13.4 % (11.5-14.5); RDW Standard Deviation 41.7 fL (36.4-46.3); Red Blood Count 2.93 M/uL (4.20-5.40); White Blood Count 14.67 K/ul (4.8-10.8)
[2024-04-06] MEDS: PRENATAL VITAMIN 1 TAB PO SCH (08:33)
[2024-04-06 19:51] LABS: Appearance Urine Clear (Clear); Bacteria Urine Automated None Seen (None Seen); Bilirubin Urine Negative (Negative); Blood Urine 2+ (Negative); Cast Urine Automated 0-2 /lpf (0-2); Color Urine Yellow; Epithelial Cell Urine Auto 0-2 /hpf (0-2); Glucose Urine UA Negative (Negative); Ketones Urine Negative (Negative); Leukocyte Esterase Urine 1+ (Negative); Nitrite Urine Negative (Negative); Protein Urine Negative (Negative); RBC Urine Automated >20 /hpf (0-2); Specific Gravity Urine 1.009 (1.000-1.030); Urobilinogen Urine Negative (Negative)
[2024-04-06] MEDS: bisacodyL 5 MG TABEC PO SCH (21:00)
[2024-04-07 06:06] LABS: Hemoglobin 7.5 g/dl (12.0-16.0)
--- NOTE | 2024-04-07 06:14 | Obstetrical Progress Note ---
Date of Service <Laura Cerrato DO - Last Filed: 04/07/24 06:14> April 07, 2024 Assessment & Plan <Laura Cerrato DO - Last Filed: 04/07/24 06:14> (1) care following vaginal delivery: Continues to feel well today. Eating well, voiding well, ambulating well. Pain well controlled with motrin. Routine care; OOB, ambulation, continue regular diet. Anticipate discharge 24-48 hours after , today. After discharge will have 6 week follow-up with Dr. Wheatley. <Shannan Gutierres MD, FACOG - Last Filed: 04/07/24 08:42> (1) care following vaginal delivery: Subjective <Laura Cerrato DO - Last Filed: 04/07/24 06:14> Pt is a 18 y/o female who is PPD#2 following . Today, pt continuing to do well. Continues to tolerate oral intake, ambulate, and void without issue. No questions or complaints at this time. Bottle feeding. Constitutional: no fever, no chills or no sweats Respiratory: no dyspnea Cardiovascular: no chest pain or no palpitations Breast: no breast pain Genitourinary (female): no dysuria Neurologic: no headache(s) Physical Exam <Laura Cerrato DO - Last Filed: 04/07/24 06:14> General: Alert, oriented. No acute distress. Cardiac: Regular rate and rhythm, no murmurs, rubs, or gallops. Respiratory: Clear to auscultation bilaterally, no wheezes/rales/rhonchi. No increased work of breathing. Symmetrical chest rise. No respiratory distress. Abdomen: Soft, nontender, nondistended. Bowel sounds present. Uterus: Uterine fundus firm, palpable below the umbilicus. Lower extremities: No lower extremity edema or swelling. No deep calf pain. Results & Data <Laura Cerrato DO - Last Filed: 04/07/24 06:14> Vital Signs (Past 12 Hours) Vital Signs Temp Pulse Pulse Resp BP Pulse Ox O2 Del Method 04/07/24 00:20 36.7 C 88 18 123/79 Room Air 04/06/24 20:35 Room Air 04/06/24 20:35 36.9 C 97 H 18 132/83 98 Room Air 04/06/24 19:13 36.5 C 95 H 18 136/86 99 Room Air Supervising Physician <Shannan Gutierres MD, FACOG - Last Filed: 04/07/24 08:42> Co-Signing Physician Notes Resident Physician Supervision Note: I interviewed and examined the patient. Discussed with Dr. Cerrato and agree with findings and plan as documented in the note. Any exceptions or clarifications are listed here: [None] Documented By: Shannan Gutierres MD, FACOG Resident Activity Tracking <Laura Cerrato DO - Last Filed: 04/07/24 06:14> Resident Involvement: Resident Care Provided Care Provided: OB Delivery
[2024-04-07] MEDS: FERROUS SULFATE 325 MG TAB PO SCH (10:42)
== END 2024-04-07 12:20 | disposition home or self-care (01) | DRG 807 ==
LOC: 4S1 10:29 → 4E2 04-05 18:23